=== PATIENT | male | born 1970 | race Native Hawaiian/Other Pacific Islander ===

== ENCOUNTER 2018-03-28 06:33 | Emergency (ER) | payer OTHER ==
[~2018-03-28] VITALS: Ht 182.9 cm; Wt 104.3 kg
[2018-03-28 06:45] VITALS: BP 140/102; TEMP 98.2
== END 2018-03-28 10:41 | disposition home or self-care (01) ==
LOC: ED 06:33
DX: S00.01XA Abrasion of scalp, initial encounter (principal); S70.11XA Contusion of right thigh, initial encounter; V68.5XXA Driver of heavy transport vehicle injured in noncollision transport accident in traffic accident, initial encounter; Y92.89 Other specified places as the place of occurrence of the external cause
CPT/HCPCS: 99283